=== PATIENT | male | born 1990 ===

== ENCOUNTER 2016-10-22 21:48 | Emergency (ER) | payer MEDICAID ==
[2016-10-22 22:08] VITALS: PULSE 89; O2SAT 98
--- NOTE | 2016-10-22 22:54 | C.PDOC ---
History Of Present Illness 26 y/o male presents to emergency department requesting heroin and cocaine detox. Patient was not pre-screened for admission prior to arrival. He reports he typically shoots heroin to right forearm. Denies fevers, chills, withdrawal symptoms, homicidal ideation, suicidal ideation, or other complaints. Time Seen by Provider: 10/22/16 22:46 Chief Complaint (Nursing): Substance Abuse History Per: Patient History/Exam Limitations: no limitations Onset/Duration Of Symptoms: Days Current Symptoms Are (Timing): Still Present Modifying Factor(s): Narcotics, Cocaine Associated Symptoms: denies: Suicidal Thoughts, Suicidal Plan Recent travel outside of the [place]: No Past Medical History Reviewed: Historical Data, Nursing Documentation, Vital Signs Vital Signs: Last Vital Signs Temp 97.9 F 10/22/16 23:11 Pulse 89 10/22/16 23:11 Resp 17 10/22/16 23:11 BP 100/66 10/22/16 23:11 Pulse Ox 98 10/22/16 23:11 - Medical History PMH: No Chronic Diseases Family History: States: Unknown Family Hx - Social History Hx Alcohol Use: No Hx Substance Use: Yes - Immunization History Hx Tetanus Toxoid Vaccination: Yes Hx Influenza Vaccination: Yes Hx Pneumococcal Vaccination: Yes Review Of Systems Except As Marked, All Systems Reviewed And Found Negative. Constitutional: Negative for: Fever, Chills Cardiovascular: Negative for: Chest Pain, Palpitations Respiratory: Negative for: Cough Gastrointestinal: Negative for: Nausea, Vomiting Skin: Negative for: Rash Neurological: Negative for: Weakness, Numbness Psych: Negative for: Suicidal ideation, Withdrawal Physical Exam - Physical Exam Appears: Non-toxic, No Acute Distress Skin: Warm, Dry Head: Atraumatic, Normacephalic Chest: Symmetrical Cardiovascular: Rhythm Regular, No Murmur Respiratory: Normal Breath Sounds, No Rales, No Rhonchi, No Wheezing Gastrointestinal/Abdominal: Soft, No Tenderness Back: Normal Inspection Extremity: Normal ROM, Capillary Refill (< 2 sec. ), Other (trackmarks right antecubital area right forearm, with mild swelling - no cellulitis ) Pulses: Left Radial: Normal, Right Radial: Normal Neurological/Psych: Oriented x3, Normal Speech, Normal Cognition ED Course And Treatment O2 Sat by Pulse Oximetry: 98 (RA) Pulse Ox Interpretation: Normal Medical Decision Making Medical Decision Making: seeking cocaine/heroine detox- no beds available tonight per Crisis outpatient resources given and educated. Disposition Doctor Will See Patient In The: Office Counseled Patient/Family Regarding: Studies Performed, Diagnosis - Disposition Referrals: Alcoholics Anonymous [Outside] [facility] [Outside] [facility] [Outside] Disposition: HOME/ ROUTINE Disposition Time: 22:54 Condition: GOOD Additional Instructions: call our outpatient Crisis phone# to seek availability of pre-screen beds for detox (see papers given) Instructions: Polysubstance Abuse (ED) - Clinical Impression Clinical Impression: Heroin abuse, Cocaine abuse - Scribe Statement The provider has reviewed the documentation as recorded by the Scribe Bob Olivier All medical record entries made by the Scribe were at my direction and personally dictated by me. I have reviewed the chart and agree that the record accurately reflects my personal performance of the history, physical exam, medical decision making, and the department course for this patient. I have also personally directed, reviewed, and agree with the discharge instructions and disposition.
[2016-10-22 23:12] VITALS: BP 100/66; RESP 17; TEMP 97.9
== END 2016-10-22 23:14 | disposition home or self-care (01) ==
LOC: C.ER 21:48
DX: F11.10 Opioid abuse, uncomplicated (principal); F14.10 Cocaine abuse, uncomplicated